=== PATIENT | male | born 1955 | race Caucasian/White ===

== ENCOUNTER 2025-07-09 10:00 | Inpatient (IN) | payer OTHER ==
[~2025-07-09] VITALS: Ht 175.3 cm; Wt 104.0 kg
[2025-08-06 09:57] LABS: MEAN PLATELET VOLUME 7.3 FL (7.4-10.4); PRE OP HEMATOCRIT 47.8 % (42.0-52.0); PRE OP HEMOGLOBIN 16.6 g/dL (14.0-17.9); PRE OP PLATELET COUNT 243 X10'3 (140-440); PRE OP WHITE BLOOD COUNT 6.2 10'3 (4.8-10.8); RED CELL DISTRIBUTION WIDTH 14.0 % (11.5-14.5)
[2025-08-06 10:20] LABS: CREATININE 0.79 MG/DL (0.60-1.10); PRE OP ALT 68 U/L (30-65); PRE OP ANION GAP 6 (8-16); PRE OP AST 29 U/L (10-37); PRE OP BILIRUB, TOTAL 1.1 MG/DL (0.0-1.0); PRE OP GLUCOSE 94 MG/DL (70-104); PRE OP POTASSIUM 4.8 MMOL/L (3.4-5.1); PRE OP SODIUM 144 MMOL/L (135-145); TOTAL CARBON DIOXIDE 30.5 MMOL/L (24-32); eGFR > 90 ML/MIN
[2025-08-06] MEDS ORDERED: NAPR-1168 PO (11:49)
[2025-08-06] MEDS ORDERED: CABE0.5T2 PO (11:49)
[2025-08-06] MEDS ORDERED: AMLO5TAB16 PO (11:49)
[2025-08-06] MEDS ORDERED: ASPI-612 PO (11:49)
[2025-08-09] MEDS ORDERED: OLME-39 PO (22:49)
[2025-08-09] MEDS ORDERED: LEVO150T8 PO (22:49)
[2025-08-10] VITALS (20 sets, daily range): BP systolic 99–147; BP diastolic 52–86; PULSE 57–69; RESP 11–21; TEMP 96.8–97.6; O2SAT 93–100
[2025-08-10] MEDS: ceFAZolin 2gm/dext,iso 50mL 50 ML IV ONE (05:30)
[2025-08-10] MEDS ORDERED: PCA WASTE DOCUMENTATION 1 MG ML MC SCH (11:00)
[2025-08-10] MEDS ORDERED: bisacodyl 10mg suppository rectal RC PRN (11:00)
[2025-08-10] MEDS ORDERED: magnesium hydroxide 30ml (MOM) UD suspension PO PRN (11:00)
[2025-08-10] MEDS ORDERED: ondansetron/PF 4mg/2ml inj IV PRN ×2 (11:00→15:45)
[2025-08-10] MEDS: CABERGOLINE 0.5 MG PO SCH (11:05)
[2025-08-10] MEDS ORDERED: ATOR40TA72 PO (11:25)
[2025-08-10] MEDS: ringers solution, lacted 1,000 ML IV SCH ×2 (11:35→15:45)
[2025-08-10] MEDS: VANCOMYCIN/H2O 1.5g/300mL PB 300 ML IV ONE (11:35)
[2025-08-10] MEDS ORDERED: tetracaine 1% (10mg/ml) pres. free inj. ONE (11:58)
[2025-08-10] MEDS ORDERED: fentaNYL/PF 50MCG/1 ML 2ML syringe ONE (13:52)
[2025-08-10] MEDS ORDERED: midazolam 1 mg/ML 2ml injection ONE (13:53)
[2025-08-10] MEDS ORDERED: MIDAZolam 1 MG/ML 5ML VIAL ONE (14:32)
[2025-08-10] MEDS ORDERED: 0.9 % SODIUM CHLORIDE 10 ML VIAL ONE (14:41)
[2025-08-10] MEDS ORDERED: dexamethasone sod phosphate 4mg/ml inj. ONE (14:41)
[2025-08-10] MEDS ORDERED: ROPIVAcaine 0.5% (5mg/ml) 30ml vial ONE (14:41)
[2025-08-10] MEDS ORDERED: propofol inj 20 ML IV ONE ×3 (14:41)
[2025-08-10] MEDS ORDERED: ePHEDrine 50MG/ML INJ. ONE (14:42)
[2025-08-10] MEDS ORDERED: BUPIVACAINE/MELOXICAM 14 ML VIAL IL ONE (14:57)
[2025-08-10 15:37] LABS: APPEARANCE,SYNOVIAL FLUID HAZY; COLOR,SYNOVIAL FLUID YELLOW; LYMPHOCYTES,SYNOVIAL FLUID 75 % (0-75); MONOCYTES,SYNOVIAL FLUID 21 % (0-0); NEUTROPHILS,SYNOVIAL FLUID 4 % (0-25); SYN RBC 605 /CU MM (0); SYN WBC 330 /CU MM (0-200)
[2025-08-10 15:39] LABS: SYNOVIAL LINING CELLS 5
[2025-08-10] MEDS ORDERED: hydrALAZINE 20mg/ml inj. IV PRN (15:45)
[2025-08-10] MEDS ORDERED: HYDROmorphone/PF 0.2 MG/ML SYRINGE IV PRN ×2 (15:45)
[2025-08-10] MEDS ORDERED: acetaminophen 1,000mg/100ml IV 100 ML IV PRN (15:45)
[2025-08-10] MEDS ORDERED: labetalol 20mg/4ml (5mg/ml) syringe IV PRN (15:45)
[2025-08-10] MEDS ORDERED: morphine 4 MG/ML inj SYRINge IV PRN (15:45)
--- NOTE | 2025-08-10 17:21 | OPERATIVE REPORT ---
Operative Report Operative Report Procedure: Revision of knee replacement, tibial component, for tibial loosening, right knee Surgeon: Dr. Matteo Stovall Wash Test Checker: Jo Ann Domingo PA-C Anesthesiologist: Dr. 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 This was a constrained posterior tibial liner and component and it is felt that the malrotation probably generated the loosening of the tibial component. The patellar component was solidly fixated. The femoral component appeared well aligned. Estimated Blood Loss: 150cc Complications: None Implants: Size F persona tibial baseplate was placed. A 16mm constrained posterior stabilized polyethylene was placed. Procedure: The risks, benefits, expected results, and possible complications of the planned procedure had been explained to the patient and informed consent obtained. The patient was taken to the operating room where a general anesthetic was administered. The right leg was prepped and draped in the usual sterile fashion with the patient in the supine position on the operating table. A timeout was taken prior to surgery confirming patient identification, operative side operative site, planned procedure, administration of pre-operative antibiotics, site marking, recognition of allergies, and confirming presence of all necessary implants and instruments. A standard midline approach was performed. The femoral implant was inspected and appeared to be solidly fixated. There was no substantial ligamentous imbalance. Rotational and longitudinal alignment the femoral component appeared to be acceptable. However the tibia appeared to be loose with obvious micro motion and also significant malrotation. We therefore elected to revise the tibial component. Meticulous dissection was carried out around the tibial baseplate after adequate exposure of the proximal tibia. Tibial baseplate was then removed without excessive bone loss. Prior cement was removed in its entirety. Preparation was then carried out with a fresh saw cut utilizing an external guide. The cut surface was then lavaged thoroughly and a tourniquet inflated to 300 mmHg. New preparation of the tibial baseplate was carried out. Cement was mixed and the implant was placed without difficulty in the appropriate position. Trial spacer was placed and compression applied while the cement cured. A new tibial insert was then impacted. The wound was irrigated thoroughly with normal saline and then closed in layers with #1 strata fix for deep retinacular closure #0 Stratafix suture for subcutaneous tissue, and #4-0 Stratafix for skin. Sterile dressings were applied, and the patient was returned to the recovery room in satisfactory condition. MATTEO STOVALL MD Aug 10, 2025 17:21
[2025-08-10] MEDS: potassium cl 20mEq in 1/2 NS 1,000 ML IV SCH (18:51)
[2025-08-10] MEDS: oxyCODONE IR 5mg (immed. release) tablet PO PRN (20:48)
[2025-08-10] MEDS: ceFAZolin/D5W- 1GM premix 50 ML IV SCH ×2 (22:46→23:30)
[2025-08-11] MEDS: vancomycin/NS 1 GM ADD-VANTAGE 250 ML IV SCH (00:15)
[2025-08-11 01:05] VITALS: BP 139/78; PULSE 62; RESP 14; O2SAT 96
[2025-08-11 01:23] VITALS: BP 116/73; PULSE 60; RESP 15; TEMP 97.4; O2SAT 96
[2025-08-11 05:03] LABS: MEAN PLATELET VOLUME 7.4 FL (7.4-10.4); RED CELL DISTRIBUTION WIDTH 13.8 % (11.5-14.5)
[2025-08-11 05:12] LABS: TOTAL CARBON DIOXIDE 26.0 MMOL/L (24-32)
[2025-08-11 06:00] VITALS: BP 116/79; PULSE 57; RESP 18; TEMP 96.7; O2SAT 97
[2025-08-11] MEDS: levoTHYROXINE 25mcg tablet PO SCH (07:00)
--- NOTE | 2025-08-11 08:49 | PROGRESS NOTE ---
Progress Note Ortho Ortho Post Op Day #: 1 Follow Up Progress Note Patient had some overnight drainage from the surgical incision but not more than expected. Wound was inspected, no continued drainage, Sylke dressing intact, no erythema or overlying skin changes or concern of infection. Patient had difficulty with physical therapy this morning and was unable to meet discharge criteria. We will plan for one additional overnight stay to allow for further physical therapy intervention. Spoke with PT in hopes for afternoon session today. ROS ROS No new complaints Exam Exam: Alert and Oreinted x4, Vital signs are stable, In no acute distress, Wound clean and dry, Distal neurovasc intact, Calves: soft bilaterally, Calves: non-tender bilat Problem/Assessment/Plan Assessment\Plan: Doing Well, Cont. Physicial Therapy Results/Orders Result Diagram: 08/11/25 0446 08/11/25 0446 [facility] Aug 11, 2025 08:49
[2025-08-11 10:00] VITALS: BP 125/73; PULSE 62; RESP 14; TEMP 97.6; O2SAT 98
[2025-08-11 10:58] VITALS: BP_SYST 125; PULSE 62
[2025-08-11] MEDS: levoTHYROXINE 100mcg tablet PO SCH (10:59)
--- NOTE | 2025-08-11 17:08 | DISCHARGE SUMMARY ---
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 This procedure was accomplished satisfactorily and he was found to have a loose tibial component. The following morning he had difficulty with therapy because the nerve block was still in effect however by afternoon he was doing pretty well, and ambulating independently and was discharged home. He will follow-up in my office in 2 weeks Medications Home Meds: Home Medications Active Reported Atorvastatin Calcium 40 Mg Tablet 1 Tab PO HS Benicar Hct 40-12.5 mg Tablet (Olmesartan/Hydrochlorothiazide) 40 Mg-12.5 Mg Tablet 1 Tab PO DAILY 30 Days Levothyroxine Sodium 150 Mcg Tablet 150 Mcg PO DAILY Aspir 81 (Aspirin) 81 Mg Tablet.dr 1 Tab PO DAILY Cabergoline 0.5 Mg Tablet 0.5 Tab PO TUFR Amlodipine Besylate 5 Mg Tablet 1 Tab PO DAILY Naproxen 500 Mg Tablet 1 Tab PO BID PRN Problem Qualifiers (1) Mechanical complication associated with orthopedic device: Qualified Codes: T84.498A - Other mechanical complication of other internal orthopedic devices, implants and grafts, initial encounter CARIDAD SCHNEIDER MD Aug 11, 2025 17:08
== END 2025-08-11 18:46 | disposition home health service (06) | DRG 468 ==
LOC: EDSTATUS 08-10 10:00 → PAS IN 08-10 10:46 → ORTHO 4S 08-10 17:35
PROVIDERS: ADMIT Orthopaedic Surgery; ATTEND Orthopaedic Surgery
PROC: 0SRV0J9 Replacement of Right Knee Joint, Tibial Surface with Synthetic Substitute, Cemented, Open Approach (ICD-10-PCS; 2025-08-10)
PROC: 0SPV0JZ Removal of Synthetic Substitute from Right Knee Joint, Tibial Surface, Open Approach (ICD-10-PCS; principal; 2025-08-10 13:41)
DX: T84.032A Mechanical loosening of internal right knee prosthetic joint, initial encounter (principal); X58.XXXA Exposure to other specified factors, initial encounter; Y83.8 Other surgical procedures as the cause of abnormal reaction of the patient, or of later complication, without mention of misadventure at the time of the procedure; Y92.89 Other specified places as the place of occurrence of the external cause
CPT/HCPCS: Z7506; Z7508; 36415; 80051; 80053; 82948; 84443; 85025; 87070; 87075; 87081; 89051; 97110; 97116; 97161; 97530; A4314; A4340; A4615; A4618; A6258; A6446; A6449; A6590; A7000; C1713; C1776; C9088; G0378; J0690; J1100; J2250; J2704; J2795; J3010; J3373; J3375; J3480; J3490; J7030; J7120